=== PATIENT | female | born 1995 | race Caucasian/White ===

== ENCOUNTER 2019-08-13 17:00 | Emergency (ER) | payer BC ==
--- NOTE | 2019-08-13 18:11 | ED ---
Neurological HPI - HPI Summary HPI Summary: 24 year old F presenting to [facility] with a chief complaint of a severe headache 3 days ago. The patient states that 3 days ago in the evening her arms and legs were tremoring and she was having trouble speaking. She was awake at the time of her symptoms. She went to see her friend who is a trained EMT and has had difficulty speaking with stuttering and slurred speech since that time. The patient rates the pain 5/10 in severity. Symptoms aggravated by nothing. Symptoms alleviated by nothing. Patient reports a history of migraines and seizures which her neurologist believes are related to her migraines. Patient denies any gait abnormalities, facial droop, weakness, fever, chills, erythema of eyes, sore throat, chest pain, shortness of breath, cough, abdominal pain, nausea/vomiting, dysuria, hematuria, myalgia, edema, rash, or dizziness. Medication list reviewed. Allergy list reviewed. - History of Current Complaint Chief Complaint: EDSeizure Stated Complaint: SEIZURES PER PT Time Seen by Provider: 08/13/19 18:08 Hx Obtained From: Patient Onset/Duration: Started days ago, Still Present Timing: Constant Pain Intensity: 5 Pain Scale Used: 0-10 Numeric Aggravating: Nothing Alleviating: Nothing Associated Signs and Symptoms: Positive: Negative - Chills, erythema (eyes), sore throat, cough, abdominal pain, dysuria, hematuria, myalgia, edema, rash, gait aabnormalities, facial droop, Headache, Impaired Speech. Negative: Weakness, Dizziness, Nausea/Vomiting, Fever, Chest Pain, Shortness of Breath - Allergy/Home Medications Allergies/Adverse Reactions: Allergies Allergy/AdvReac Type Severity Reaction Status Date / Time latex Allergy Severe Hives Verified 07/26/17 12:51 amoxicillin [From Augmentin] Allergy Vomiting Verified 07/26/17 12:51 clavulanic acid Allergy Vomiting Verified 07/26/17 12:51 [From Augmentin] Home Medications: Home Medications NK [No Home Medications Reported] 08/13/19 [History Confirmed 08/13/19] PMH/Surg Hx/FS Hx/Imm Hx Endocrine/Hematology History: Denies: Hx Diabetes Cardiovascular History: Denies: Hx Hypertension, Hx Pacemaker/ICD Respiratory History: Denies: Hx Asthma History: Denies: Hx Renal Disease Sensory History: Denies: Hx Hearing Aid Neurological History: Reports: Hx Seizures Psychiatric History: Denies: Hx Panic Disorder - Surgical History Surgical History: Yes Surgery Procedure, Year, and Place: TONSILECTOMY;. VULVAR CYST REMOVED;. COLONOSCOPIES (NO POLYPS) Infectious Disease History: No Infectious Disease History: Denies: Traveled Outside the [place] in Last 30 Days Review of Systems Negative: Fever, Chills Negative: Erythema Negative: Sore Throat Negative: Chest Pain Negative: Shortness Of Breath, Cough Negative: Abdominal Pain, Vomiting, Nausea Negative: dysuria, hematuria Negative: Myalgia, Edema Negative: Rash Neurological/Mental Status: Negative - Dizziness, gait abnormalities, facial droop, Other - Arm and leg tremoring, stutter Positive: Headache, Slurred Speech. Negative: Weakness All Other Systems Reviewed And Are Negative: Yes Physical Exam - Summary Physical Exam Summary: Constitutional: Well-developed, Well-nourished, Alert. Anxious appearing Skin: Warm, Dry HENT: Normocephalic; Atraumatic Eyes: Conjunctiva normal Neck: Musculoskeletal ROM normal neck. (-) JVD, (-) Stridor, (-) Tracheal deviation Cardio: Rhythm regular, rate normal, Heart sounds normal; Intact distal pulses; The pedal pulses are 2+ and symmetric. Radial pulses are 2+ and symmetric. (-) Murmur Pulmonary/Chest wall: Effort normal. (-) Respiratory distress, (-) Wheezes, (-) Rales Abd: Soft, (-) tenderness, (-) Distension, (-) Guarding, (-) Rebound Musculoskeletal: (-) Edema Lymph: (-) Cervical adenopathy Neuro: Alert, Oriented x3 Psych: Mood and affect Normal Triage Information Reviewed: Yes Vital Signs On Initial Exam: Initial Vitals Temp Pulse Resp BP Pulse Ox 97.8 F 69 18 141/83 98 08/13/19 17:04 08/13/19 17:04 08/13/19 17:04 08/13/19 17:04 08/13/19 17:04 Vital Signs Reviewed: Yes Procedures - Sedation Patient Received Moderate/Deep Sedation with Procedure: No Diagnostics - Vital Signs Vital Signs Temp Pulse Resp BP Pulse Ox 08/13/19 17:04 97.8 F 69 18 141/83 98 - Laboratory Result Diagrams: 08/13/19 18:48 08/13/19 18:48 Lab Statement: Any lab studies that have been ordered have been reviewed, and results considered in the medical decision making process. Course/Dx - Course Course Of Treatment: 24 year old F presenting to [facility] with a chief complaint of a severe headache 3 days ago. The patient states that 3 days ago in the evening her arms and legs were tremoring and she was having trouble speaking. She was awake at the time of her symptoms. She went to see her friend who is a trained EMT and has had difficulty speaking with stuttering and slurred speech since that time. On evaluation the patient's speech was clear. Differential diagnoses; consider conversion disorder, complex migraine, less likely venous sinus thrombosis or CVA. Physical exam findings: anxious appearing. Laboratory results with no significant abnormalities except for an RBC of 4.91, MCV of 78, absolute lymphs of 0.8, BUN/creatinine ratio of 22.4, glucose of 114, ur specific gravity of 1.005. In the ED course, the patient was given Reglan and Toradol. Patient will be signed out to Dr. Maravilla at 21:00 on 08/13/2019 pending Brain MRI, Head MRI, and disposition. The patient is agreeable with this plan. - Diagnoses Provider Diagnoses: Headache, Speech disturbance - Critical Care Time Critical Care Statement: Critical care time is provided exclusive of any time spent performing procedures. Discharge ED - Sign-Out/Discharge Documenting (check all that apply): Sign-Out Patient Signing out patient TO: Teri Maravilla - Pending Head MRI, Brain MRI, and disposition. - Discharge Plan Condition: Stable Referrals: Fred Richardson MD [Primary Care Provider] - - Attestation Statements Document Initiated by Scribe: Yes Documenting Scribe: Susan Orellana Provider For Whom Scribe is Documenting (Include Credential): Dante Preciado MD Scribe Attestation: Susan Menjivar, scribed for Dante Preciado MD on 08/13/19 at 2123. Status of Scribe Document: Ready
[2019-08-13] MEDS ORDERED: Metoclopramide IV* 5 MG/ML 2 ML VIAL IV SLOW PU ONE (18:35)
[2019-08-13] MEDS ORDERED: Ketorolac INJ* 30 MG/ML 1 ML VIAL IV PUSH ONE (18:35)
[2019-08-13 18:56] LABS: Hematocrit 38 % (35-47); Hemoglobin 13.3 g/dL (12.0-16.0); Mean Corpuscular HGB Conc 35 g/dL (31-36); Mean Corpuscular Hemoglobin 27 pg (27-31); Mean Corpuscular Volume 78 fL (80-97); Mean Platelet Volume 7.9 fL (7.4-10.4); Platelet Count 270 10^3/uL (150-450); Red Blood Count 4.91 10^6 /uL (3.70-4.87); Red Cell Distribution Width 15 % (10-15); White Blood Count 4.5 10^3/uL (3.5-10.8)
[2019-08-13 18:57] LABS: ABS Eosinophils 0.2 10^3/ul (0-0.6); ABS Lymphocytes 0.8 10^3/ul (1.0-4.8); ABS Monocytes 0.4 10^3/ul (0-0.8); ABS Neutrophils 3.2 10^3/ul (1.5-7.7); Eosinophil % 3.9 %; Lymphocyte % 16.8 %; Nucleated Red Blood Cells % 0.1
[2019-08-13 19:01] LABS: INR 0.98 (0.82-1.09)
[2019-08-13 19:13] LABS: Albumin 4.1 g/dL (3.2-5.2); Albumin/Globulin Ratio 1.5 (1-3); BUN/Creatinine Ratio 22.4 (8-20); EGFR African American 155.9 (>60); EGFR Non-African American 128.8 (>60); Globulin 2.7 g/dL (2-4); Magnesium 2.2 mg/dL (1.9-2.7); Total Bilirubin 0.2 mg/dL (0.2-1.0); Total Protein 6.8 g/dL (6.4-8.9)
[2019-08-13 20:26] LABS: Urine Appearance Clear; Urine Bilirubin Negative (Negative); Urine Blood Negative (Negative); Urine Color Straw; Urine Glucose Negative (Negative); Urine Ketones Negative (Negative); Urine Nitrite Negative (Negative); Urine Protein Negative (Negative); Urine Specific Gravity 1.005 (1.010-1.030); Urine Urobilinogen Negative (Negative)
--- NOTE | 2019-08-13 21:18 | ED ---
Progress - Progress Note Progress Note: The patient is a sign-out from Dr. Dante Preciado MD, to Dr. Teri Maravilla MD, at change of shift at 2100 on 08/13/19, pending Brain/Head MRI results and disposition. Brain and Head MRI results are negative for significant abnormalities. Patient is safe for discharge. She is advised to follow up with her neurologist and PCP. - Results/Orders Results/Orders: Brain MRI Impression: No acute/significant intracranial abnormality. This report was reviewed by Dr. Maravilla. Head MRI Impression: The dural venous sinuses are patent. This report was reviewed by Dr. Maravilla. Re-Evaluation - Re-Evaluation First Eval Re-Evaluation Time: 22:20 Comment: I discussed all results. Discussed all symptoms that warrant return to the ED. Course/Dx - Diagnoses Provider Diagnoses: Headache, Speech disturbance - Critical Care Time Critical Care Statement: Critical care time is provided exclusive of any time spent performing procedures. Discharge ED - Sign-Out/Discharge Documenting (check all that apply): Patient Departure - Patient will be discharged home., Receiving Sign-Out Receiving patient FROM: Dante Preciado - Patient is a sign-out from Dr. Dante Preciado MD, at change of shift at 2100 on 08/13/19, pending MRI and disposition. - Discharge Plan Condition: Stable Disposition: HOME Patient Education Materials: Acute Headache (DC) Referrals: Ajit Lee MD [Medical Doctor] - 3 Days Fred Richardson MD [Primary Care Provider] - 3 Days Additional Instructions: Please follow up with your neurologist and primary care providers in the next 2- 3 days concerning today's visit. Return to the emergency department for any new or worsening symptoms. - Billing Disposition and Condition Condition: STABLE Disposition: Home - Attestation Statements Document Initiated by Scribe: Yes Documenting Scribe: Zonia Miller Provider For Whom Micheline is Documenting (Include Credential): Teri Maravilla MD Scribe Attestation: Zonia Menjivar, scribed for Teri Maravilla MD on 08/14/19 at 0456. Scribe Documentation Reviewed: Yes Provider Attestation: The documentation as recorded by the Zonia jacobs accurately reflects the service I personally performed and the decisions made by me, Teri Maravilla MD Status of Scribe Document: Viewed
[2019-08-13 22:32] VITALS: BP 108/66
== END 2019-08-13 22:32 | disposition home or self-care (01) ==
LOC: ED 17:00
DX: R51 Headache (principal); R47.9 Unspecified speech disturbances; Z91.040 Latex allergy status; J02.9 Acute pharyngitis, unspecified; R05 Cough; Z88.0 Allergy status to penicillin
CPT/HCPCS: 36415; 70544; 70551; 80053; 81003; 83605; 83735; 85025; 85610; 96374; 96375; 99282; J1885; J2765